=== PATIENT | female | born 1985 | race African-American/Black ===

== ENCOUNTER 2021-05-19 10:01 | Emergency (ER) | payer OTHER ==
[~2021-05-19] VITALS: Ht 180.3 cm; Wt 107.0 kg
[2021-05-19] MEDS ORDERED: DEXAMETHASONE 10 MG/ML VIAL IV ONE (10:30)
[2021-05-19] MEDS ORDERED: FAMOTIDINE 20MG/2ML VIAL IV ONE (10:30)
[2021-05-19] MEDS ORDERED: RACEPINEPHRINE 2.25% 0.5ML NEB VIAL HHN ONE (10:30)
[2021-05-19 10:47] LABS: BASOPHILS % 0.6 % (0.0-2.0); EOSINOPHILS % 1.9 % (0.0-5.0); HEMOGLOBIN. 13.1 g/dL (12.0-16.0); LYMPHOCYTES % 29.8 % (20.0-50.0); MEAN CORPUSCULAR HEMOGLOBIN 26.2 pg (28.0-32.0); MEAN PLATELET VOLUME 9.3 fl (7.4-10.4); NEUTROPHILS % 61.7 % (40.0-76.0); PLATELET 250 x1000/uL (130-400); RED CELL DISTRIBUTION WIDTH 14.2 % (11.6-14.6)
[2021-05-19 10:58] LABS: ETHANOL BLOOD < 10 mg/dL; HCG SCREEN NEGATIVE
[2021-05-19 11:03] LABS: CHLORIDE 110 mEq/L (98-107)
[2021-05-19 11:32] LABS: CLARITY URINE CLEAR (CLEAR); COLOR URINE YELLOW (YELLOW); KETONES URINE NEGATIVE (NEGATIVE); LEUKOCYTE ESTERASE URINE NEGATIVE (NEGATIVE); NITRITE URINE NEGATIVE (NEGATIVE); OCCULT BLOOD URINE NEGATIVE (NEGATIVE); PH URINE 6.5 (4.5-8.0); PROTEIN URINE NEGATIVE (NEGATIVE); SPECIFIC GRAVITY URINE 1.002 (1.005-1.030); UROBILINOGEN URINE 0.2 E.U./dL (0.2-1.0)
[2021-05-19 12:09] LABS: *AMPHETAMINES SCREEN URINE NEGATIVE (NEGATIVE); *BARBITURATES SCREEN URINE NEGATIVE (NEGATIVE); *BENZODIAZEPINES SCREEN URINE NEGATIVE (NEGATIVE); *COCAINE SCREEN URINE NEGATIVE (NEGATIVE); METHADONE URINE SCREEN NEGATIVE (NEGATIVE)
[2021-05-19 12:10] LABS: PHENCYCLIDINE URINE SCREEN NEGATIVE (NEGATIVE)
[2021-05-19 12:16] LABS: OPIATES URINE SCREEN NEGATIVE (NEGATIVE)
[2021-05-19 12:19] LABS: CANNABINOID URINE SCREEN PRESUMTIVE POSITIVE (NEGATIVE)
[2021-05-19] MEDS ORDERED: DIPH25TA62 MT (13:44)
[2021-05-19] MEDS ORDERED: P20 MT (13:44)
[2021-05-19] MEDS ORDERED: FAMO-135 MT (13:44)
[2021-05-19] MEDS ORDERED: EPIN0.3P3 IM (13:44)
[2021-05-19 14:30] VITALS: BP 125/90
== END 2021-05-19 14:46 | disposition home or self-care (01) ==
LOC: ER 10:01
DX: T78.2XXA Anaphylactic shock, unspecified, initial encounter (principal); T78.3XXA Angioneurotic edema, initial encounter; E11.65 Type 2 diabetes mellitus with hyperglycemia; Z91.013 Allergy to seafood; Z13.9 Encounter for screening, unspecified
CPT/HCPCS: 36415; 80053; 80305; 80320; 81003; 84703; 85025; 86850; 86900; 86901; 94640; 96374; 96375; 99284; J1100; J3490; Z7610; G0480

== ENCOUNTER 2024-08-18 07:07 | Emergency (ER) | payer OTHER ==
[~2024-08-18] VITALS: Ht 170.2 cm; Wt 86.0 kg
[~2024-08-18 07:07] MED LIST: DIPH25TA62 MT; EPIN0.3P3 IM; FAMO-135 MT; P20 MT
[2024-08-18 07:10] VITALS: BP 105/75; PULSE 106; RESP 16; TEMP 36.9; O2SAT 98
[2024-08-18 09:13] LABS: BASOPHILS % 0.5 % (0.0-2.0); DIFFERENTIAL COMMENT 0; EOSINOPHILS % 1.5 % (0.0-5.0); HEMATOCRIT. 40.7 % (36.0-48.0); HEMOGLOBIN. 12.6 g/dL (12.0-16.0); LYMPHOCYTES % 13.7 % (20.0-50.0); MEAN CORPUSCULAR HEMOGLOBIN 24.5 pg (28.0-32.0); MEAN CORPUSCULAR HGB CONC 30.8 g/dL (31.0-37.0); MEAN CORPUSCULAR VOLUME 79.4 fL (81.0-99.0); MEAN PLATELET VOLUME 9.2 fl (7.4-10.4); MONOCYTES % 5.2 % (2.0-8.0); NEUTROPHILS % 79.1 % (40.0-76.0); PLATELET 318 x1000/uL (130-400); RED BLOOD CELL COUNT 5.13 mill/uL (4.2-5.4); RED CELL DISTRIBUTION WIDTH 16.9 % (11.6-14.6)
[2024-08-18 09:19] LABS: CHLORIDE 97 mEq/L (98-107); POTASSIUM 4.1 mEq/L (3.5-5.1); SODIUM 134 mEq/L (136-145)
[2024-08-18 09:20] LABS: CALCIUM 9.9 mg/dL (8.7-10.4); CARBON DIOXIDE 26 mEq/L (21-32)
[2024-08-18 09:25] LABS: CREATININE 0.9 mg/dL (0.6-1.0); GLUCOSE 251 mg/dL (70-105); UREA NITROGEN BLOOD 11 mg/dL (9-23)
[2024-08-18 09:52] LABS: TROPONIN I HIGH SENSITIVITY < 4 ng/L (3.0-34)
== END 2024-08-18 10:15 | disposition home or self-care (01) ==
LOC: ER 07:27
DX: R55 Syncope and collapse (principal); R53.1 Weakness; E11.9 Type 2 diabetes mellitus without complications; E78.5 Hyperlipidemia, unspecified; I10 Essential (primary) hypertension
CPT/HCPCS: 36415; 80048; 84484; 85025; 93005; 99284